=== PATIENT | male | born 1950 | race Caucasian/White ===

== ENCOUNTER → 2023-03-04 | Outpatient (CLI) | payer MEDICARE, OTHER ==
[~2023-03-04] MED LIST: ASPI-394 PO; METO-158 PO; MULT-228 PO; RISP1TAB63 PO
== END | disposition home or self-care (01) ==
LOC: XYW 07:34
PROVIDERS: ATTEND Podiatrist Foot & Ankle Surgery
DX: L08.9 Local infection of the skin and subcutaneous tissue, unspecified (principal)
CPT/HCPCS: 78315; A9503